=== PATIENT | female | born 1930 | race Caucasian/White ===

== ENCOUNTER 2017-07-01 17:07 | Inpatient (IN) | payer OTHER ==
[~2017-07-01] VITALS: Ht 165.1 cm; Wt 84.2 kg
--- NOTE | ~2017-07-01 | HC ---
[facility] [place] [address] CONSULTATION Name: SHANE TRIANA Room #: 203-P [facility] IN M.R.#: [id number] Admission: 07/01/17 Attend Phys: Basilio Hua MD Discharge: Date of : 31 Report #: [id number] THIS REPORT FOR: //name// CC: Basilio Motley MD [facility] unknown DATE OF SERVICE: 07/03/2017 HISTORY OF PRESENT ILLNESS: The patient is an 86-year-old female who has had recurrent hospitalization at [facility] for possible pneumonia versus congestive heart failure exacerbation. She was treated with antibiotics as well as breathing treatments. At the time, was having persistent shortness of breath. She also has a history of atrial fibrillation. Reason for GI consultation is poor appetite, nausea and diarrhea. Of note, the diarrhea began during one of the hospitalizations when she was started on antibiotics. She denies any blood in her stools. She denies any weight loss, but she reports significant decreased nutritional input because of nausea. She denies any vomiting. She denies any hematemesis. She denies any dysphagia or odynophagia. No previous history of upper endoscopy for many years. Apparently, she is on Prilosec for gastroesophageal reflux disease at home. She denies any significant heartburn symptoms at this time. Today, she states she was able to eat for the first time and having a better appetite. No nausea or vomiting as of today. She has been diagnosed with a left pleural effusion as well as possible infiltrate. Plan is for thoracentesis of this area in the near future. The patient also apparently had a fall approximately a week ago. Currently, she denies any chest pain or shortness of breath at rest. She is not wearing oxygen at home. She is currently on 1 liter of nasal cannula oxygen at this time. She states she had a colonoscopy approximately a month ago in which a polyp was removed. The reason for colonoscopy at that time was constipation. Again, denies any bleeding. ALLERGIES: REGLAN, LABETALOL, TAPE, ALBUTEROL, NAPROXEN. PAST MEDICAL HISTORY: Hypertension, previous cholecystectomy, history of lupus, colon polyps recently had a colonoscopy as above, previous hysterectomy, appendectomy many years ago, bilateral cataract surgery, recent pulmonary effusion/infiltrate, coronary artery disease with stent placement in 05/2004. REVIEW OF SYSTEMS: As per HPI. FAMILY HISTORY: Negative for colon cancer. SOCIAL HISTORY: She denies any tobacco or alcohol use. [facility] [address] [place] [address] CONSULTATION Name: SHANE TRIANA Room #: 203-P [facility] IN [facility].#: [id number] Admission: 07/01/17 Attend Phys: Basilio Hua MD Discharge: Date of : 31 Report #: [id number] CURRENT MEDICATIONS: Lasix 40 b.i.d., lisinopril, atenolol, MiraLax on a daily basis, potassium chloride, aspirin, insulin sliding scale, Tylenol p.r.n., guaifenesin, acidophilus, apixaban, docusate, cefepime, simethicone, Zofran p.r.n., melatonin, hydrocodone p.r.n., budesonide. PHYSICAL EXAMINATION: VITAL SIGNS: Temperature is 97.7, pulse 108, blood pressure is 95/62, respiratory rate is 18, O2 sat is 95% on 1 liter nasal canula oxygen. GENERAL: She is alert and oriented x 3, in no acute distress. HEENT: Sclerae nonicteric. Oropharynx clear. NECK: Supple, without lymphadenopathy. CARDIOVASCULAR: Regular rate and rhythm. CHEST: Decreased breath sounds in the left more than the right, mostly in the base and middle lobe area. ABDOMEN: Soft. She is nontender, nondistended, normoactive bowel sounds. EXTREMITIES: No cyanosis, clubbing or edema. LABORATORY DATA: Sodium 136, potassium 4.7, chloride 101, bicarbonate 32, BUN 23, creatinine 1.2, glucose 121, AST 17, total bilirubin 0.6, alkaline phosphatase 86, ALT is 31, total protein 6.1, albumin 2.9. INR 1.2. WBC is 13.0, hemoglobin 11.9, platelet count is 388. C. diff has been sent and is pending at this time. ASSESSMENT AND PLAN: 1. Nausea, poor appetite. Etiology is unclear. This may be multifactorial as she has had several hospitalizations and has been on multiple medications. She does report improvement today at this time. We will continue current regimen of Zofran, antiemetics and continue to observe. I explained to the patient we may consider an upper endoscopy in the near future; however, would prefer this to be done once her pulmonary status has improved. She is set for a thoracentesis in the near future. In the meantime, would continue proton pump inhibitor therapy and antiemetics. 2. Recent diarrhea, suspect this may be secondary to antibiotics. Clostridium difficile has been sent and is pending at this time. Historically, the patient has had problems with constipation. Thank you for allowing me to participate in her care. <ELECTRONICALLY SIGNED> By: Ralph Garcia MD 07/06/17 1043 1356 1809 Ralph Garcia MD /nt
--- NOTE | ~2017-07-01 | TEE ---
[facility] [address] [place] [address] TRANSESOPHAGEAL ECHOCARDIOGRAM Name: SHANE TRIANA Room #: 203-P [facility] IN .R.#: [id number] Admission: 07/01/17 Attend Phys: Basilio Hua MD Discharge: Date of : 31 Date of Service: 07/05/17 0834 Report #: [id number] THIS REPORT FOR: //name// APPROVED REPORT Study performed: 07/05/2017 07:47:50 EXAM: Comprehensive 2D, Doppler, and color-flow Echocardiogram Patient Location: [facility] Room #: 203 Status: routine BSA: 1.96 HR: 109 bpm BP: 102/55 mmHg Rhythm: Atrial Fibrillation Other Information Study Quality: Adequate Indications Atrial Fibrillation Cardioversion. Hx: ISCM, Stent, COPD, CHF Echo Enhancing Agent Indication: Rule out Shunt Agent(s) / Amount(s) Used: Agitated Saline 6 cc Procedure After obtaining informed consent, patient underwent transesophageal echo in the [employer]. Type of Sedation : Conscious Sedation Sedation was administered by Annabel Michel RN. Sedation was achieved intravenously with: Versed (2) Fentanyl (25) Transesophageal probe was inserted and advanced into esophagus without difficulty by Boston Etienne MD. The CATALINO was performed without complications. Synchronized Cardioversion attempted: Successful Rhythm following Synchronized Cardioversion: Normal Sinus Rhythm Throughout the procedure, the blood pressure, pulse oximetry, cardiac rhythm, and rate were monitored. The patient tolerated the procedure without adverse effects. Recovery from conscious sedation was uneventful and vital signs were stable. [facility] [address] [place] [address] TRANSESOPHAGEAL ECHOCARDIOGRAM Name: SHANE TRIANA Room #: 203-P [facility] IN M.R.#: [id number] Admission: 07/01/17 Attend Phys: Basilio Hua MD Discharge: Date of : 31 Date of Service: 07/05/17 0834 Report #: [id number] Left Ventricle The left ventricle is normal size. There is normal left ventricular wall thickness. Left ventricular systolic function is severely decreased. LVEF 30%. Right Ventricle The right ventricle is normal size. The right ventricular systolic function is normal. Atria Left atrium is dilated. No thrombus or masses in the left atrium or appendage. No shunting noted by contrast bubble injection. Right atrium is dilated. Aortic Valve The Aortic valve is mildly sclerotic. No aortic regurgitation is present. There is no aortic valvular stenosis. Mitral Valve Mild mitral annular calcification. Mild mitral regurgitation. Tricuspid Valve The tricuspid valve is normal in structure. Moderate tricuspid regurgitation. Pulmonic Valve The pulmonary valve is normal in structure. Trace pulmonic regurgitation. Great Vessels The aortic root is normal in size. Moderate atherosclerosis in aorta, no aneurysm IVC is normal in size and collapses >50% with inspiration. Pericardium There is no pericardial effusion. <Conclusion> Left ventricular systolic function is severely decreased. LVEF 30%. Both atria are dilated. No shunting by contrast bubble injection No thrombus or masses in the left atrium or appendage. Aortic valve is mildly sclerotic. No aortic regurgitation or stenosis [facility] [address] [place] [address] TRANSESOPHAGEAL ECHOCARDIOGRAM Name: SHANE TRIANA Room #: 203-P [facility] IN .R.#: [id number] Admission: 07/01/17 Attend Phys: Basilio Hua MD Discharge: Date of : 31 Date of Service: 07/05/17833 Report #: [id number] Mild mitral annular calcification. Mild mitral regurgitation. Moderate atherosclerosis in aorta, no aneurysm There is no pericardial effusion. <ELECTRONICALLY SIGNED> By: Boston Etienne MD, FACC 07/05/17833 3 3 Boston Etienne MD, FACC /INF
--- NOTE | ~2017-07-01 | EKG ---
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 07/06/17 0801 5 5 Boston Etienne MD, [facility] /EPI
--- NOTE | ~2017-07-01 | EKG ---
[address] [place] [address] ELECTROCARDIOGRAM REPORT Name: SHANE TRIANA Room #: 203- ADM IN M.R.#: [id number] Admission: 07/01/17 Attend Phys: Basilio Hua MD Discharge: Date of : 31 Report #: [id number] THIS REPORT FOR: //name// [facility] Test Date: 2017-07-03 Test Time: 21:14:25 Pat Name: SHANE TRIANA Department: Room: 203 Gender: F Surgical Specialist: NURSE DIEGO : 1930 Requested By: Leyla Friend Order Number: [id number] MD: Boston Etienne Measurements Intervals [place] Rate: 107 P: 243 AK: 87 QRS: -22 QRSD: 157 T: 113 QT: 396 QTc: 529 Interpretive Statements Atrial flutter Left bundle branch block Compared to ECG 07/02/2017 07:35:47 No significant change was found Electronically Signed On 07-04-2017 8:12:04 CDT by oBston Etienne [email or web address] <ELECTRONICALLY SIGNED> By: Boston Etienne MD, [facility] 07/04/1712 13 13 Boston Etienne MD, [facility] /EPI
--- NOTE | ~2017-07-01 | 2DMMODE ---
[facility] [address] [place] [address] 2 D/M-MODE ECHOCARDIOGRAM Name: SHANE TRIANA Room #: 203-P [facility] IN ..#: [id number] Admission: 07/01/17 Attend Phys: Basilio Hua MD Discharge: Date of : 31 Date of Service: 07/03/17 0723 Report #: [id number] THIS REPORT FOR: //name// APPROVED REPORT Study performed: 07/02/2017 10:30:20 EXAM: Comprehensive 2D, Doppler, and color-flow Echocardiogram Patient Location: Bedside Status: on-call BSA: 1.96 HR: 95 bpm BP: 124/89 mmHg Rhythm: Atrial Flutter, LBBB Other Information Study Quality: Adequate Risk Factors: Cardiac Risk Factors: HTN, DM Indications Dyspnea CAD 2D Dimensions LVEF(%): 25.80 (>50%) IVSd: 11.29 (7-11mm) LVOT Diam: 20.00 (18-24mm) LVDd: 47.04 mm PWd: 11.01 (7-11mm) Ascending Ao: 38.20 (22-36mm) LVDs: 41.44 (25-40mm) Aortic Root: 30.27 mm LV Single Plane 4CH: 21.37 % LV Single Plane 2CH: 27.65 % Latif's LVEF: 24.51 % Biplane EF: 27.3 % Volumes Left Atrial Volume (Systole) Single Plane 4CH: 58.35 mL Single Plane 2CH: 45.10 mL LA ESV Index: 31.00 mL/m2 Aortic Valve AoV Peak Greyson.: 1.00 m/s AO Peak Gr.: 5.97 mmHg LVOT Max P.90 mmHg [facility] [address] [place] [address] 2 D/M-MODE ECHOCARDIOGRAM Name: SHANE TRIANA Room #: 203-[facility] IN ..#: [id number] Admission: 07/01/17 Attend Phys: Basilio Hua MD Discharge: Date of : 31 Date of Service: 07/03/17 0723 Report #: [id number] LVOT Max V: 0.85 m/s RIGOBERTO Vmax: 2.60 cm2 Mitral Valve E/A Ratio: 82.0 MV Decel. Time: 205.17 ms MV E Max Greyson.: 0.82 m/s MV A Greyson.: 0.01 m/s MV PHT: 59.50 ms Pulmonary Valve PV Peak Greysno.: 0.45 m/s PV Peak Gr.: 0.80 mmHg Tricuspid Valve TR Peak Greyson.: 1.85 m/s RAP Estimate: 10.00 mmHg TR Peak Gr.: 13.72 mmHg PA Pressure: 24.00 mmHg Left Ventricle The left ventricle is normal size. Borderline concentric left ventricular hypertrophy. Left ventricular systolic function is moderate to severely decreased. LVEF is 25-30%. This study is not technically sufficient to allow evaluation of the LV diastolic function. Right Ventricle The right ventricle is normal size. The right ventricular systolic function is reduced. Atria Left atrium is mildly dilated. Right atrium is mildly dilated. Aortic Valve The aortic valve is mildly sclerotic. No aortic regurgitation is present. There is no aortic valvular stenosis. Mitral Valve There is mitral annular calcification. Trace mitral regurgitation. No evidence of mitral valve stenosis. Tricuspid Valve The tricuspid valve is normal in structure. Mild tricuspid regurgitation. Pulmonary artery pressure is 24 mmHg. Pulmonic Valve [facility] [address] [place] [address] 2 D/M-MODE ECHOCARDIOGRAM Name: SHANE TRIANA Room #: 203-P [facility] IN .R.#: [id number] Admission: 07/01/17 Attend Phys: Basilio Hua MD Discharge: Date of : 31 Date of Service: 07/03/17 0723 Report #: [id number] The pulmonary valve is normal in structure. Trace pulmonic regurgitation. Great Vessels The aortic root is normal in size. IVC is dilated and collapses <50% with inspiration. Pericardium There is no pericardial effusion. <Conclusion> The left ventricle is normal size. Left ventricular systolic function is moderate to severely decreased. The right ventricle is normal size. Left atrium is mildly dilated. Right atrium is mildly dilated. The aortic valve is mildly sclerotic. Trace mitral regurgitation. Mild tricuspid regurgitation. Pulmonary artery pressure is 24 mmHg. <ELECTRONICALLY SIGNED> By: Ivan Bee MD 07/03/17722 2 2 Ivan Bee MD /INF
--- NOTE | ~2017-07-01 | EKG ---
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
--- NOTE | ~2017-07-01 | EKG ---
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
--- NOTE | ~2017-07-01 | HC ---
[facility] [place] [address] CONSULTATION Name: SHANE TRIANA Room #: 203-P ADM IN M.R.#: [id number] Admission: 07/01/17 Attend Phys: Basilio Hua MD Discharge: Date of : 31 Report #: [id number] THIS REPORT FOR: //name// CC: Basilio BARNETT unknown DATE OF SERVICE: 07/02/2017 CARDIOLOGY CONSULTATION: INDICATION: Atrial fibrillation. HISTORY OF PRESENT ILLNESS: This is an 86-year-old female with a history of a-fib, CAD, who was transferred from [facility] with pneumonia. It seems that she was hospitalized at [facility] for the past few weeks for the same problem. She had been discharged, but continues to return to the ER with complaints of shortness of air. Followup chest x-rays revealed persistent left lower lobe pneumonitis and effusion. The patient has a history of paroxysmal a-fib, previously on Eliquis and amiodarone. It is unclear why the amiodarone was discontinued as an outpatient. There was some question whether this was causing her shortness of breath. This was not the case as she was found to have pneumonia. There is a report that a recent echo performed at [facility] reveals an EF in the 35% range. She was treated with IV Lasix for fluid overload. Currently, she complains of shortness of breath, but denies any chest pains. Remote history of CAD with stent placement. Follows in clinic with Dr. Etienne. History of paroxysmal a-fib, hypertension, hypercholesterolemia, COPD and heart failure. ALLERGIES: INCLUDE LABETALOL, NAPROXEN, METOCLOPRAMIDE AND ALBUTEROL. MEDICATIONS: Please see the MAR for full listing. SOCIAL HISTORY: Negative for tobacco use. FAMILY HISTORY: Negative for premature CAD. REVIEW OF SYSTEMS: A full 10-point review of systems was performed. Only the pertinent positives and negatives are described in the HPI. PHYSICAL EXAMINATION: VITAL SIGNS: Blood pressure 130/70, heart rate is 105 beats per minute. GENERAL APPEARANCE: This is an elderly appearing female in no acute respiratory distress. HEAD AND EYES: Normocephalic. Sclerae are anicteric. [facility] [address] [place] [address] CONSULTATION Name: SHANE TRIANA Room #: 203-P [facility] IN ..#: [id number] Admission: 07/01/17 Attend Phys: Basilio Hua MD Discharge: Date of : 31 Report #: [id number] ENT: Oral mucosa moist. NECK: Supple. LUNGS: Diminished breath sounds at the left side with crackles. CARDIAC: S1, S2 positive, 1/6 systolic murmur. ABDOMEN: Soft, nontender. EXTREMITIES: No cyanosis. Bilateral lower extremity edema. NEUROLOGIC: Alert and oriented x 3. LABORATORY VALUES: White count 17.8, hemoglobin is 13.2. Sodium is 132, creatinine is 1.0. ECG reveals probable atrial flutter with a left bundle-branch block. IMPRESSION AND PLAN: 1. Atrial fibrillation/flutter, the heart rate seems to be under control. She had been on amiodarone in the past, maintaining sinus rhythm, but this was discontinued for unclear reasons. Would continue with rate control at this time. She will continue on Eliquis as well. 2. Pneumonia/pneumonitis/chronic obstructive pulmonary disease, continue antibiotics and check cultures. Await pulmonary evaluation. 3. Coronary artery disease, remote history of stent placement. Stable with no symptoms of angina. Continue with aspirin therapy. 4. ?cardiomyopathy, recent echo reveals EF in the 35% range. We will repeat the echo here. She has evidence for fluid overload including edema, will recommend gentle diuresis. 5. Hypertension, continue with blood pressure medications. <ELECTRONICALLY SIGNED> By: Ivan Bee MD 07/02/17 2143 0729 0832 Ivan Bee MD /nt
--- NOTE | ~2017-07-01 | EKG ---
[place] [address] [address] [employer] [place] [address] ELECTROCARDIOGRAM REPORT Name: SHANE TRIANA Room #: 203-P ADM IN M.R.#: [id number] Admission: 07/01/17 Attend Phys: Basilio Hua MD Discharge: Date of : 31 Report #: [id number] THIS REPORT FOR: //name// [facility] Test Date: 2017-07-05 Test Time: 14:38:47 Pat Name: SHANE TRIANA Department: Room: 203 P Gender: F Video Operator: Jose PAREKH : 1930 Requested By: Boston Etienne Order Number: [id number] MD: Ryan Castillo Measurements Intervals [place] Rate: 88 P: [place]: QRS: -36 QRSD: 153 T: 118 QT: 434 QTc: 526 Interpretive Statements Sinus rhythm with frequent PACs. Left bundle branch block Compared to ECG 07/05/2017 08:20:32 Sinus rhythm no longer present Electronically Signed On 07-05-2017 16:46:26 CDT by Ryan Castillo [email or web address] <ELECTRONICALLY SIGNED> By: Ryan Castillo MD 07/05/17 1646 1438 1438 Ryan Castillo MD /JAVIER
--- NOTE | ~2017-07-01 | CATHLAB ---
[facility] [address] [place] [address] INVASIVE PROCEDURE REPORT Name: SHANE TRIANA Room #: 203-P [facility] IN .R.#: [id number] Admission: 07/01/17 Attend Phys: Basilio Hua MD Discharge: Date of : 31 Date of Service: 07/05/17809 Report #: [id number] THIS REPORT FOR: //name// CC: Basilio BARNETT unknown PROCEDURE: Cardioversion. INDICATIONS: Atrial flutter. DESCRIPTION OF PROCEDURE: The potential benefits and risks of the procedure were discussed at length with the patient, who understood. Full written and informed consent was obtained. The patient was sedated with intravenous Versed and fentanyl and 20 biphasic joules were applied to the chest with prompt conversion of atrial flutter to sinus rhythm. She remained in hemodynamically, electrically and neurologically stable condition following the procedure and was transported back to her hospital room. SUMMARY: Successful cardioversion of atrial flutter to sinus rhythm with a single 20-joule biphasic synchronous shock. By: 0810 1059 Boston Etienne MD, FACC /nt
--- NOTE | ~2017-07-01 | EKG ---
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
[~2017-07-01 17:07] MED LIST: ASPIRIN81 M2 PO; BACTRIM DS TAB1 EACH PO; FISH OIL 1,0001 EAC5 PO; HYDROCHLOROTHIA25 M1 PO; IBUPROFEN 600600 M1 PO; LASIX 10 MG/10 MG/M1 PO; LASIX 20 MG TAB20 MG PO; LUTEIN6 MG PO; MULTIVITAMINS1 EAC7; NORVASC 5 MG TAB5 MG PO; POTASSIUM CHLO20 ME1 PO; ROBAXIN 750 MG750 M1 PO; VEGETARIAN GLU750 MG PO; VICODIN 5-5001 EACH PO; VITCB500GO PO
[2017-07-01] MEDS ORDERED: ALBUTEROL2.5 MG/31 INH (17:27)
[2017-07-01] MEDS ORDERED: PULMICORT0.25 MG/3 INH (17:29)
[2017-07-01] MEDS ORDERED: CARDIZEM CD120 MG PO (17:34)
[2017-07-01] MEDS ORDERED: COLACE100 MG PO (17:36)
[2017-07-01] MEDS ORDERED: ELIQUIS2.5 MG PO (17:46)
[2017-07-01] MEDS ORDERED: PROBIOTIC1 EAC1 PO (17:46)
[2017-07-01] MEDS ORDERED: OMEPRAZOLE40 MG PO (17:48)
[2017-07-01] MEDS ORDERED: MIRALAX17 GM PO (17:49)
[2017-07-01] MEDS ORDERED: PROPAFENONE 15150 MG PO (17:49)
[2017-07-01] MEDS ORDERED: TYLENOL325 MG PO (17:50)
[2017-07-01] MEDS ORDERED: BISACODYL SUPP10 MG RECTAL (17:51)
[2017-07-01] MEDS ORDERED: NORCO 5-325 TA1 EACH PO (17:53)
[2017-07-01] MEDS ORDERED: MELATONIN3 MG PO (17:54)
[2017-07-01] MEDS ORDERED: MILK OF MA2400 MG/10 PO (17:55)
[2017-07-01] MEDS ORDERED: NITROSTAT0.4 M1 SUBLING (17:57)
[2017-07-01] MEDS ORDERED: ONDANSETRON HCL4 M2 IV (18:00)
[2017-07-01] MEDS ORDERED: SENNA8.6 MG PO (18:09)
[2017-07-01] MEDS ORDERED: GAS RELIEF80 MG PO (18:10)
[2017-07-01 18:36] LABS: HEMATOCRIT 42.5 % (37.0-47.0); HEMOGLOBIN 14.1 gm/dL (12.0-15.0); MCH 32.5 pg (26.0-34.0); MCHC 33.1 g/dL (28.0-37.0); MCV 98.1 fL (80.0-100.0); RBC 4.33 mil/uL (4.20-5.00); RDW 13.2 % (10.5-14.5); WBC 15.5 thou/uL (4.0-11.0)
[2017-07-01 18:50] LABS: ALBUMIN 2.9 g/dL (3.4-5.0); CALCIUM 8.9 mg/dL (8.5-10.1); CREATININE 1.1 mg/dL (0.6-1.0); MAGNESIUM 2.3 mg/dL (1.8-2.4); POTASSIUM 3.4 mmol/L (3.5-5.1); TOTAL BILIRUBIN 0.6 mg/dL (<0.1-1.0); TOTAL PROTEIN 6.5 g/dL (6.4-8.2)
[2017-07-01 19:55] VITALS: BP 112/82
[2017-07-02] VITALS (7 sets, daily range): BP systolic 76–132; BP diastolic 49–89
[2017-07-02 03:27] LABS: HEMATOCRIT 39.6 % (37.0-47.0); HEMOGLOBIN 13.2 gm/dL (12.0-15.0); MCH 32.7 pg (26.0-34.0); MCHC 33.3 g/dL (28.0-37.0); MCV 98.4 fL (80.0-100.0); RBC 4.02 mil/uL (4.20-5.00); RDW 13.1 % (10.5-14.5); WBC 17.8 thou/uL (4.0-11.0)
[2017-07-02 03:36] LABS: CALCIUM 8.5 mg/dL (8.5-10.1); MAGNESIUM 2.1 mg/dL (1.8-2.4); POTASSIUM 3.6 mmol/L (3.5-5.1)
[2017-07-02 14:10] LABS: TOTAL PROTEIN 6.1 g/dL (6.4-8.2)
[2017-07-02 15:15] LABS: APTT 55.6 Seconds (24.5-32.8); INR 1.2
[2017-07-03 00:17] VITALS: BP 140/80
[2017-07-03 03:58] LABS: HEMATOCRIT 35.6 % (37.0-47.0); HEMOGLOBIN 11.9 gm/dL (12.0-15.0); MCH 32.7 pg (26.0-34.0); MCHC 33.4 g/dL (28.0-37.0); MCV 97.8 fL (80.0-100.0); RBC 3.64 mil/uL (4.20-5.00); RDW 13.3 % (10.5-14.5)
[2017-07-03 04:17] LABS: CALCIUM 8.5 mg/dL (8.5-10.1); CREATININE 1.2 mg/dL (0.6-1.0); MAGNESIUM 2.2 mg/dL (1.8-2.4); POTASSIUM 4.7 mmol/L (3.5-5.1)
[2017-07-03 04:44] VITALS: BP 129/60
[2017-07-03 08:29] VITALS: BP 115/83
[2017-07-03 12:09] VITALS: BP 95/62
[2017-07-03 17:00] VITALS: BP 101/70
[2017-07-03 19:55] VITALS: BP 100/71
[2017-07-04 03:54] VITALS: BP 94/91
[2017-07-04 05:39] LABS: HEMATOCRIT 40.6 % (37.0-47.0); HEMOGLOBIN 13.1 gm/dL (12.0-15.0); MCH 32.4 pg (26.0-34.0); MCHC 32.3 g/dL (28.0-37.0); MCV 100.2 fL (80.0-100.0); RBC 4.06 mil/uL (4.20-5.00); RDW 13.4 % (10.5-14.5); WBC 15.6 thou/uL (4.0-11.0)
[2017-07-04 05:50] LABS: CALCIUM 8.9 mg/dL (8.5-10.1); CREATININE 1.1 mg/dL (0.6-1.0); MAGNESIUM 2.2 mg/dL (1.8-2.4); POTASSIUM 5.8 mmol/L (3.5-5.1)
[2017-07-04 08:50] VITALS: BP 113/79
[2017-07-04 11:30] VITALS: BP 101/70
[2017-07-04 11:38] LABS: COLOR RED; SOURCE LEFT CHEST; TOTAL VOLUME 60 mL
[2017-07-04 11:39] LABS: CLARITY TURBID
[2017-07-04 11:47] LABS: SOURCE LEFT CHEST
[2017-07-04 11:57] LABS: BF NUCLEATED CELLS 3227; BF RBC 45865
[2017-07-04 13:21] LABS: BF MACROPHAGE 4
[2017-07-04 13:22] LABS: BF NEUTROPHILS 64
[2017-07-04 15:36] VITALS: BP 102/61
[2017-07-04 19:41] VITALS: BP 112/68
[2017-07-05 04:06] LABS: HEMATOCRIT 37.9 % (37.0-47.0); HEMOGLOBIN 12.6 gm/dL (12.0-15.0); MCH 32.8 pg (26.0-34.0); MCHC 33.2 g/dL (28.0-37.0); MCV 98.7 fL (80.0-100.0); RBC 3.84 mil/uL (4.20-5.00); RDW 13.1 % (10.5-14.5); WBC 13.2 thou/uL (4.0-11.0)
[2017-07-05 04:14] LABS: CALCIUM 8.5 mg/dL (8.5-10.1); CREATININE 1.1 mg/dL (0.6-1.0); MAGNESIUM 1.9 mg/dL (1.8-2.4)
[2017-07-05 04:16] LABS: POTASSIUM 3.5 mmol/L (3.5-5.1)
[2017-07-05 04:47] VITALS: BP 95/66
[2017-07-05 07:34] VITALS: BP 102/55
[2017-07-05 11:26] VITALS: BP 89/58
[2017-07-05 12:11] LABS: BODY FLUID ALBUMIN 2.1 g/dL (()); BODY FLUID AMYLASE 24 U/L (()); BODY FLUID GLUCOSE 116 mg/dL (()); BODY FLUID LDH 193 IU/L (())
[2017-07-05 15:21] VITALS: BP 110/56
[2017-07-05 19:28] VITALS: BP 96/53
[2017-07-06 00:14] VITALS: BP 106/60
[2017-07-06 04:04] LABS: HEMATOCRIT 37.2 % (37.0-47.0); HEMOGLOBIN 12.1 gm/dL (12.0-15.0); MCH 32.3 pg (26.0-34.0); MCHC 32.5 g/dL (28.0-37.0); MCV 99.5 fL (80.0-100.0); RBC 3.74 mil/uL (4.20-5.00); RDW 13.4 % (10.5-14.5); WBC 11.5 thou/uL (4.0-11.0)
[2017-07-06 04:20] LABS: CALCIUM 8.6 mg/dL (8.5-10.1); CREATININE 1.1 mg/dL (0.6-1.0); POTASSIUM 3.7 mmol/L (3.5-5.1)
[2017-07-06 04:37] VITALS: BP 105/61
[2017-07-06 07:18] VITALS: BP 94/62
[2017-07-06 11:31] VITALS: BP 96/48
[2017-07-06] MEDS ORDERED: MUCINEX600 MG PO (13:49)
[2017-07-06] MEDS ORDERED: TUMS PO (13:49)
[2017-07-06] MEDS ORDERED: PROTONIX40 M1 PO (13:49)
[2017-07-06] MEDS ORDERED: CARVEDILOL3.125 MG PO (13:49)
[2017-07-06] MEDS ORDERED: NOVOLOG100 UNIT/1 SUBQ (13:49)
[2017-07-06] MEDS ORDERED: BENAZEPRIL HCL5 MG PO (13:49)
[2017-07-06] MEDS ORDERED: PACERONE 200 M200 M1 PO (13:49)
[2017-07-06] MEDS ORDERED: CEFDINIR300 MG PO (13:58)
[2017-07-06 15:34] VITALS: BP 107/69
== END 2017-07-06 18:11 | DRG 177 ==
LOC: 2N 17:07
PROVIDERS: Hospitalist; Internal Medicine
PROC: 0W9B4ZX Drainage of Left Pleural Cavity, Percutaneous Endoscopic Approach, Diagnostic (ICD-10-PCS; principal; 2017-07-04)
PROC: 5A2204Z Restoration of Cardiac Rhythm, Single (ICD-10-PCS; 2017-07-05)
PROC: B24BZZ4 Ultrasonography of Heart with Aorta, Transesophageal (ICD-10-PCS; 2017-07-05)
DX: J69.0 Pneumonitis due to inhalation of food and vomit (principal); I50.23 Acute on chronic systolic (congestive) heart failure; J96.00 Acute respiratory failure, unspecified whether with hypoxia or hypercapnia; I48.92 Unspecified atrial flutter; D68.59 Other primary thrombophilia; J90 Pleural effusion, not elsewhere classified; J44.0 Chronic obstructive pulmonary disease with (acute) lower respiratory infection; E87.1 Hypo-osmolality and hyponatremia; I42.9 Cardiomyopathy, unspecified; W19.XXXA Unspecified fall, initial encounter; E87.6 Hypokalemia; I11.0 Hypertensive heart disease with heart failure; I25.10 Atherosclerotic heart disease of native coronary artery without angina pectoris; E11.9 Type 2 diabetes mellitus without complications; I48.91 Unspecified atrial fibrillation; K21.9 Gastro-esophageal reflux disease without esophagitis; Z79.1 Long term (current) use of non-steroidal anti-inflammatories (NSAID); Z79.899 Other long term (current) drug therapy; Z79.4 Long term (current) use of insulin; Z88.8 Allergy status to other drugs, medicaments and biological substances; Z91.048 Other nonmedicinal substance allergy status; Z95.5 Presence of coronary angioplasty implant and graft; Z79.51 Long term (current) use of inhaled steroids; Z90.710 Acquired absence of both cervix and uterus; Z98.42 Cataract extraction status, left eye; Z98.41 Cataract extraction status, right eye; Z86.73 Personal history of transient ischemic attack (TIA), and cerebral infarction without residual deficits; Y93.89 Activity, other specified; Y92.89 Other specified places as the place of occurrence of the external cause; Y99.8 Other external cause status
CPT/HCPCS: 10081; 27001

== ENCOUNTER → 2017-12-28 | Outpatient (CLI) | payer OTHER ==
[~2017-12-28] MED LIST changes: +ALBUTEROL2.5 MG/31 INH; +BENAZEPRIL HCL5 MG PO; +BISACODYL SUPP10 MG RECTAL; +CARDIZEM CD120 MG PO; +CARVEDILOL3.125 MG PO; +CEFDINIR300 MG PO; +COLACE100 MG PO; +ELIQUIS2.5 MG PO; +GAS RELIEF80 MG PO; +MELATONIN3 MG PO; +MILK OF MA2400 MG/10 PO; +MIRALAX17 GM PO; +MUCINEX600 MG PO; +NITROSTAT0.4 M1 SUBLING; +NORCO 5-325 TA1 EACH PO; +NOVOLOG100 UNIT/1 SUBQ; +OMEPRAZOLE40 MG PO; +ONDANSETRON HCL4 M2 IV; +PACERONE 200 M200 M1 PO; +PROBIOTIC1 EAC1 PO; +PROPAFENONE 15150 MG PO; +PROTONIX40 M1 PO; +PULMICORT0.25 MG/3 INH; +SENNA8.6 MG PO; +TUMS PO; +TYLENOL325 MG PO
--- NOTE | ~2017-12-28 | 2DMMODE ---
[facility] [place] [address] 2 D/M-MODE ECHOCARDIOGRAM Name: SHANE TRIANA Room #: REG [facility]#: [id number] Admission: 12/28/17 Attend Phys: Boston Etienne, Discharge: Date of : 32 Date of Service: 12/28/17 1723 Report #: [id number] THIS REPORT FOR: //name// APPROVED REPORT Study performed: 12/28/2017 14:04:18 EXAM: Comprehensive 2D, Doppler, and color-flow Echocardiogram Patient Location: Out-Patient Room #: Echo lab 2 Status: routine BSA: 1.85 HR: 61 bpm BP: 122/56 mmHg Rhythm: NSR Other Information Study Quality: Adequate Indications Diabetes Hypertension/HDD 2D Dimensions RVDd: 32.40 mm IVSd: 10.72 (7-11mm) LVOT Diam: 20.17 (18-24mm) LVDd: 47.58 mm PWd: 10.76 (7-11mm) Ascending Ao: 36.21 (22-36mm) LVDs: 36.31 (25-40mm) Aortic Root: 31.84 mm IVC: 10.00 mm Volumes Left Atrial Volume (Systole) Single Plane 4CH: 50.63 mL Single Plane 2CH: 66.43 mL LA ESV Index: 35.00 mL/m2 Aortic Valve AoV Peak Greyson.: 1.78 m/s AO Peak Gr.: 12.60 mmHg LVOT Max P.18 mmHg LVOT Max V: 1.02 m/s RIGOBERTO Vmax: 1.84 cm2 Mitral Valve E/A Ratio: 0.6 MV Decel. Time: 428.80 ms [facility] [address] [place] [address] 2 D/M-MODE ECHOCARDIOGRAM Name: SHANE TRIANA Room #: [facility]#: [id number] Admission: 12/28/17 Attend Phys: Boston Etienne, Discharge: Date of : 32 Date of Service: 12/28/17 1723 Report #: [id number] MV E Max Greyson.: 0.63 m/s MV A Greyson.: 0.98 m/s MV PHT: 124.35 ms IVRT: 207.61 ms Pulmonary Valve PV Peak Greyson.: 1.06 m/s PV Peak Gr.: 4.53 mmHg Pulmonary Vein P Vein S: 0.69 m/s P Vein A: 0.64 m/s P Vein D: 0.21 m/s P Vein A Dur.: 143.0 msec P Vein S/D Ratio: 3.29 Tricuspid Valve TR Peak Greyson.: 2.84 m/s TR Peak Gr.: 32.37 mmHg PA Pressure: 37.00 mmHg Left Ventricle The left ventricle is normal size. There is normal LV segmental wall motion. There is normal left ventricular wall thickness. The overall left ventricular systolic function appears normal. LVEF is 50-55%. Discordant septal motion Grade I - abnormal relaxation pattern. Right Ventricle The right ventricle is normal size. The right ventricular systolic function is normal. Atria Left atrium is dilated. Right atrium is dilated. Aortic Valve Aortic valve is calcified. No aortic regurgitation is present. There is no aortic valvular stenosis. Mitral Valve Moderate mitral annular calcification Mild mitral regurgitation. No evidence of mitral valve stenosis. Tricuspid Valve The tricuspid valve is normal in structure. There is mild tricuspid regurgitation. Estimated PAP 37 mmHg. There is mild pulmonary hypertension. Pulmonic Valve [facility] [address] [place] [address] 2 D/M-MODE ECHOCARDIOGRAM Name: SHANE TRIANA Room #: REG [facility]#: [id number] Admission: 12/28/17 Attend Phys: Boston Etienne, Discharge: Date of : 32 Date of Service: 12/28/17 1723 Report #: [id number] The pulmonary valve is normal in structure. Trace pulmonic regurgitation. Great Vessels The aortic root is normal in size. IVC is normal in size and collapses >50% with inspiration. Pericardium There is no pericardial effusion. <Conclusion> The overall left ventricular systolic function appears normal. There is normal LV segmental wall motion. LVEF is 50-55%. Discordant septal motion. Mild diastolic dysfunction Both atria are dilated. Aortic valve is calcified. No aortic regurgitation or stenosis. Moderate mitral annular calcification. Mild mitral regurgitation. There is mild tricuspid regurgitation. Estimated pulmonary artery pressure of 37 mmHg. There is no pericardial effusion. <ELECTRONICALLY SIGNED> By: Boston Etienne MD, FACC 12/28/171722 22 22 Boston Etienne MD, FACC /INF
== END ==
LOC: CV 09:57
DX: I08.1 Rheumatic disorders of both mitral and tricuspid valves (principal); E11.9 Type 2 diabetes mellitus without complications; I10 Essential (primary) hypertension; I27.20 Pulmonary hypertension, unspecified

== ENCOUNTER 2018-02-27 06:42 | Observation (INO) | payer OTHER ==
[~2018-02-27] VITALS: Ht 162.6 cm; Wt 85.3 kg
[2018-02-27 07:17] VITALS: BP 145/64
[2018-02-27 07:27] LABS: ABSOLUTE NEUTROPHILS 5.4 thou/uL (1.4-8.2); HEMATOCRIT 39.3 % (37.0-47.0); LYMPHOCYTES 25.6 % (24.0-44.0); MCH 32.2 pg (26.0-34.0); MCHC 33.1 g/dL (28.0-37.0); MCV 97.3 fL (80.0-100.0); MONOCYTES 11.4 % (1.0-8.0); PLATELET COUNT 255 thou/uL (150-400); RBC 4.04 mil/uL (4.20-5.00); RDW 14.1 % (10.5-14.5)
[2018-02-27 07:36] LABS: CALCIUM 9.3 mg/dL (8.5-10.1); CREATININE 1.6 mg/dL (0.6-1.0); POTASSIUM 3.1 mmol/L (3.5-5.1)
[2018-02-27] MEDS ORDERED: GLIPIZIDE XL5 MG PO (07:39)
[2018-02-27] MEDS ORDERED: VITAMINC500 PO (07:40)
[2018-02-27] MEDS ORDERED: FISH OIL 1,001000 M2 PO (07:40)
[2018-02-27] MEDS ORDERED: GLUCOSAMINE HC500 MG PO (07:41)
[2018-02-27 07:42] LABS: PROTIME 10.5 Seconds (9.3-11.4)
[2018-02-27] MEDS ORDERED: METOLAZONE 2.52.5 MG PO (07:42)
[2018-02-27 07:43] LABS: ALBUMIN 3.2 g/dL (3.4-5.0); TOTAL BILIRUBIN 0.7 mg/dL (<0.1-1.0); TOTAL PROTEIN 6.9 g/dL (6.4-8.2)
[2018-02-27] MEDS ORDERED: ANORO ELLIPTA1 EACH INH (07:43)
[2018-02-27 07:45] LABS: APTT 42.9 Seconds (24.5-32.8)
[2018-02-27 16:00] VITALS: BP 114/65
[2018-02-27 20:00] VITALS: BP 136/62
[2018-02-28 00:50] VITALS: BP 140/70
--- NOTE | 2018-02-28 03:41 | NUR ---
AOX4, post DUAL CHAMBER PACEMAKER, [employer] PACEMAKER, 100% A PACED ON THE MONITOR. ON LEFT ARM IMMOBILIZER. DENIES PAIN. ON 2 L/NC. CLEAR LUNG SOUNDS. R HAND AND LEFT HAMD WITH DOUBLE LUMEN IV, INTACT AND FLUSHES WELL. FF UP POC
[2018-02-28 04:36] VITALS: BP 117/64
--- NOTE | 2018-02-28 06:45 | NUR ---
23:00>CALLED ANSWERING SERVICE OF DR PAYAN. 23:22>DR PAYAN CALLED BACK. INFORMED HIM THAT PATIENT IS REQUESTING TO HAVE HER MELATONIN 10 MG SHE CANT SLEEP WITHOUT TAKING IT. I ALSO RELAYED K RESULT. DR PAYAN SAID THAT IT WAS ALREADY CORRECTED YESTERDAY MORNING. HE ALSO ORDERED TO GIVE MELATONIN 10 MG/TABLET FOR SLEEPING. READBACK DONE AND ORDERS ENTERED,
[2018-02-28 08:00] VITALS: BP 118/61
[2018-02-28 11:01] VITALS: BP 118/61
[2018-02-28 12:09] VITALS: BP 118/61
--- NOTE | 2018-03-03 14:51 | D ---
[facility] [place] [address] DISCHARGE SUMMARY Name: SHANE TRIANA Room #: 209-P [facility] Aaron MSonya#: [id number] Admission: 02/27/18 Attend Phys: Ryan Castillo MD Discharge: 02/28/18 Date of : 32 Report #: [id number] THIS REPORT FOR: //name// CC: Pankaj Sesayothy Pb DATE OF SERVICE: 02/28/2018 DISCHARGE DIAGNOSES: 1. Sick sinus syndrome. 2. Paroxysmal atrial fibrillation. 3. Tachycardia-bradycardia syndrome. 4. Resolved nonischemic cardiomyopathy. PROCEDURES PERFORMED: Dual chamber pacemaker implantation. HISTORY: The patient is an 87-year-old with a history of likely tachycardia mediated cardiomyopathy and AFib who was cardioverted with normalization of LV function. She has had problems with fatigue which were likely in part due to pulmonary disease, but she wore rn cardiac rehab showing average heart rate in the 40s-50s. I, therefore, recommended she undergo dual chamber pacemaker implantation for treatment of her sick sinus syndrome. She underwent successful device implantation with no complications. HOSPITAL COURSE: The patient was monitored overnight and did well. On day of discharge, the patient denied any chest pain, shortness of breath, fevers or chills. PHYSICAL EXAMINATION: GENERAL: She was in no acute distress. HEART: Regular rate and rhythm with no murmurs, rubs, gallops. LUNGS: Clear bilaterally. ABDOMEN: Soft, nontender. EXTREMITIES: No clubbing, cyanosis, edema. Incision showed no hematoma, but she did have ecchymosis. Chest x-ray showed stable lead position, no pneumothorax. Device interrogation was within normal limits. As such, she was deemed stable for discharge home. Discharge instructions were reviewed. She will follow up in 7-10 days for site check. <ELECTRONICALLY SIGNED> By: Ryan Castillo MD 03/03/18 1451 [id number] Ryan Castillo MD /nt
--- NOTE | 2018-03-03 14:52 | P ---
[facility] [place] [address] PROCEDURE REPORT Name: SHANE TRIANA Room #: 209-P [facility] Aaron M.RDulce#: [id number] Admission: 02/27/18 Attend Phys: Ryan Castillo MD Discharge: 02/28/18 Date of : 32 Report #: [id number] THIS REPORT FOR: //name// CC: Pankaj Ambriz PREOPERATIVE DIAGNOSIS: Sick sinus syndrome. POSTOPERATIVE DIAGNOSIS: Sick sinus syndrome. PROCEDURE PERFORMED: Dual chamber pacemaker implantation. HISTORY OF PRESENT ILLNESS: The patient is an 87-year-old with history of atrial fibrillation, on amiodarone therapy as well as restrictive lung disease, who has had increased fatigue, recently wearing a potline monitor showing average heart rate in the 40s-50s. She recently has recovered from a nonischemic cardiomyopathy with normalization of her EF. She is here for dual chamber pacemaker implantation for symptomatic bradycardia secondary to sick sinus syndrome. ANESTHESIA: The patient underwent MAC anesthesia with no anesthesia related complications. DESCRIPTION OF PROCEDURE: The patient underwent informed consent. We discussed the details of the procedure including the risk, which include, but not limited to bleeding, infection, vascular damage, cardiac perforation and pneumothorax. She understood these risks and is willing to proceed. The patient was brought to the EP laboratory in a fasting and sedated state, prepped and draped in a sterile fashion, received IV Ancef and underwent a venogram showing patency of the left axillary vein. Next, I injected lidocaine below the level of left clavicle. Incision was made, pocket was created over the prepectoral fascia and access was obtained twice to left axillary vein. Next, a lead was positioned into the right ventricular mid septum with adequate pacing and sensing thresholds. Next, the atrial lead was positioned in the right atrial appendage, but as I was going to suture this down as it dislodged, I repositioned the lead more laterally. I dislodged this site again, and therefore, I went back to the right atrial appendage and positioned it here. I advanced the lead multiple times to ensure that it was stable and it no longer was dislodging. Therefore, the leads were sutured to the prepectoral fascia. The pocket was irrigated with vancomycin. The device was connected and found to be functioning normally and then the pocket was irrigated with vancomycin. The pocket was closed in 3 layers using 2-0 for the deep layer, 3-0 for the mid layer and 4-0 for the subcuticular layer. Surgical glue was placed at the skin layer. The patient awoke neurologically and hemodynamically intact. No complications and no significant bleeding. [address] [address] PROCEDURE REPORT Name: SHANE TRIANA Room #: 209-P [facility] Aaron M.R.#: [id number] Admission: 02/27/18 Attend Phys: Ryan Castillo MD Discharge: 02/28/18 Date of : 32 Report #: [id number] The implanted pacemaker is a [employer] model # YZ7525, serial #[id number]. The atrial lead was [employer], model #2088TC, 52 cm, serial #[id number], with a P-wave of 0.9 millivolts, pacing impedance of 441 ohms and pacing threshold 0.8 volts at 0.4 milliseconds. The RV lead was a [employer] model #2088TC, 58 cm, serial #[id number]. This lead demonstrated R-wave of 7.7 millivolts, pacing impedance of 760 ohms and a pacing threshold of 0.75 volts at 0.5 milliseconds. The device was programmed to DDDR 60-130 mode. CONCLUSIONS: 1. Successful dual-chamber pacemaker implantation. 2. Satisfactory atrial and ventricular pacing and sensing thresholds. <ELECTRONICALLY SIGNED> By: Ryan Castillo MD 03/03/18 1452 [id number] [id number] Ryan Castillo MD /nt
== END 2018-02-28 12:25 | disposition home or self-care (01) ==
LOC: CATH 06:42 → 2N 11:29
PROVIDERS: ADMIT Internal Medicine Cardiovascular Disease
DX: I49.5 Sick sinus syndrome (principal); I48.0 Paroxysmal atrial fibrillation; I42.9 Cardiomyopathy, unspecified; I25.10 Atherosclerotic heart disease of native coronary artery without angina pectoris; J45.909 Unspecified asthma, uncomplicated; E78.00 Pure hypercholesterolemia, unspecified; I11.0 Hypertensive heart disease with heart failure; I50.9 Heart failure, unspecified; R00.1 Bradycardia, unspecified; Z90.710 Acquired absence of both cervix and uterus; Z98.890 Other specified postprocedural states; Z86.73 Personal history of transient ischemic attack (TIA), and cerebral infarction without residual deficits; Z95.5 Presence of coronary angioplasty implant and graft; Z79.899 Other long term (current) drug therapy
CPT/HCPCS: 62110; 62900; 70005

== ENCOUNTER → 2019-03-23 | Outpatient (CLI) | payer OTHER ==
[~2019-03-23] MED LIST changes: +ANORO ELLIPTA1 EACH INH; +FISH OIL 1,001000 M2 PO; +GLIPIZIDE XL5 MG PO; +GLUCOSAMINE HC500 MG PO; +METOLAZONE 2.52.5 MG PO; +VITAMINC500 PO
== END ==
LOC: SJCVC 13:35
DX: Z45.018 Encounter for adjustment and management of other part of cardiac pacemaker (principal); R94.31 Abnormal electrocardiogram [ECG] [EKG]; I44.7 Left bundle-branch block, unspecified; I25.10 Atherosclerotic heart disease of native coronary artery without angina pectoris; I11.0 Hypertensive heart disease with heart failure; I50.22 Chronic systolic (congestive) heart failure; I65.23 Occlusion and stenosis of bilateral carotid arteries; E78.2 Mixed hyperlipidemia; E78.00 Pure hypercholesterolemia, unspecified; Z79.899 Other long term (current) drug therapy